=== PATIENT | male | born 1995 | race Caucasian/White ===

== ENCOUNTER 2017-01-15 23:56 | Emergency (ER) | payer BC ==
[~2017-01-15] VITALS: Ht 165.1 cm; Wt 61.9 kg
[2017-01-16] VITALS: TEMP 38.1; Ht 165.1 cm; Wt 61.9 kg
[2017-01-16] MEDS ORDERED: AMOXICILLIN 250 MG CAP PO STA (00:09)
[2017-01-16] MEDS ORDERED: ACETAMINOPHEN 325 MG TAB PO STA (00:27)
--- NOTE | 2017-01-16 00:29 | EMERGENCY ROOM VISIT NOTE ---
History Report prepared by Viry: Angel Sandhu Under the Supervision of: Dr. Julissa Eduardo M.D. First contact with patient: 00:04 Chief Complaint: THROAT PAIN/INJURY Stated Complaint: TONSILITIS, INTENSE RT EAR PAIN, SWOLLEN LYMPH NOD History of Present Illness The patient is a 21 year old male who presents to the Emergency Room with complaints of a worsening sore throat for the past week and a half. The patient states that he was seen by S, and they told him that he had tonsillitis, and he had a negative strep test. The patient is additionally complaining of a fever , ear pain, cough, and neck pain. He denies any abdominal pain. He states that he does not have any active medical problems, and he does not take any medicine. Source of History: patient Onset: a week and a half ago Position: throat Timing: worsening Associated Symptoms: + fevers, + cough, No abdominal pain Note: Associated symptoms: Ear pain Review of Systems See HPI for pertinent positives & negatives. A total of 10 systems reviewed and were otherwise negative. 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 General: Well-appearing male, in no significant distress. HEENT: Right peritonsillar swelling. Minimal trismus. No exudates. No erythema. Some tenderness to palpation over the submandibular nodes. TMs clear bilaterally. No scleral icterus, PERRLA, neck supple. Atraumatic. Cardiovascular: Regular rate and rhythm, no extra sounds. Pulmonary: Clear to auscultation bilaterally, normal work of breathing. Abdomen: Soft, nontender, nondistended, positive bowel sounds. Musculoskeletal: Atraumatic, no peripheral edema. Neurologic: Patient awake alert and oriented x 3 Skin: Warm, dry, no rash Medical Decision & Procedures Medications Administered Medications (Trade) Dose Ordered Sig/Hans Route Start Time Stop Time Status Last Admin Dose Admin Prednisone (PredniSONE TAB) 60 mg NOW STAT PO 01/16/17 00:09 01/16/17 00:11 DC 01/16/17 00:17 60 MG Amoxicillin (Amoxil Cap) 500 mg NOW STAT PO 01/16/17 00:09 01/16/17 00:11 DC 01/16/17 00:17 500 MG Acetaminophen (Tylenol Tab) 650 mg NOW STAT PO 01/16/17 00:27 01/16/17 00:28 DC 01/16/17 00:31 650 MG ED Course 0004: Past medical records reviewed. The patient was evaluated in room B2. A complete history and physical examination was performed. 0009: Amoxicillin 500mg PO, Prednisone 60mg PO 0027: Tylenol Tab 650mg PO 0033: Upon reevaluation, the patient appeared to have improvement of his symptoms. I discussed findings with him. He verbalized agreement of the treatment plan. He was discharged home. Medical Decision Differential diagnosis: Etiologies such as viral syndrome, tonsillitis, streptococcal pharyngitis, mononucleosis, peritonsillar abscess, retropharyngeal abscess, otitis, pneumonia , influenza, as well as others were entertained. This patient was evaluated and appeared to be in some discomfort. Physical examination is consistent with a mild right peritonsillar swelling. The patient is able to open completely with some encouragement. There is no exudate or significant erythema to the posterior oropharynx. Patient was given prednisone 60 mg orally and amoxicillin 500 mg. He was given a prescription for prednisone taper as well as amoxicillin 500 mg 3 times a day for 10 days. He has an appointment in follow-up tomorrow morning. He plans on keeping this appointment. He was advised that this is not likely enough time for the above medications to be of benefits. I recommend he be seen in 48 hours to reevaluate. The patient's exam is not consistent with a peritonsillar abscess at this time however may be developing a phlegmon. He was advised to return to the ER immediately for worsening of symptoms, fever, and difficulty swallowing or any medical concerns. Impression Primary Impression: Pharyngeal swelling Scribe Attestation The scribe's documentation has been prepared under my direction and personally reviewed by me in its entirety. I confirm that the note above accurately reflects all work, treatment, procedures, and medical decision making performed by me. Departure Information Dispostion Home / Self-Care Prescriptions Prednisone (Prednisone) 10 Mg Tab 10 MG PO DIRECTED, #31 TAB 40 mg for 4 days, 30 mg for 3 days, 20 mg for 2 days, 10 mg for 2 days Prov: Julissa Eduardo M.D. 01/16/17 Amoxicillin (AMOXIL) 500 Mg Cap 500 MG PO TID, #30 CAP Prov: Julissa Eduardo M.D. 01/16/17 Referrals No Doctor, Assigned (PCP) Forms HOME CARE DOCUMENTATION FORM, IMPORTANT VISIT INFORMATION, WORK / SCHOOL INSTRUCTIONS Patient Instructions My [facility] Additional Instructions Diagnosis: Pharngeal swelling Amoxicillin 500 mg three times daily for 10 days. Prednisone 40 mg daily for 4 days, 30 mg for 3 days, 20 mg for 2 days, 10 mg for 2 days. Tylenol 650 mg every 6 hours as needed for pain, fever. Follow up with S for reevaluation in 2 days, Monday. Return to the ED for worsening of symptoms or any medical concerns.
[2017-01-16] MEDS ORDERED: PRED10TA PO (00:33)
[2017-01-16] MEDS ORDERED: AMOX500C3 PO (00:33)
[2017-01-16 00:37] VITALS: BP 137/76; PULSE 96; O2SAT 98
== END 2017-01-16 00:35 | disposition home or self-care (01) ==
LOC: C.EDB 23:58
DX: J02.9 Acute pharyngitis, unspecified (principal)